=== PATIENT | female | born 1955 | race Caucasian/White ===

== ENCOUNTER → 2017-07-25 | Outpatient (CLI) | payer BC ==
[2016-07-15 12:05] VITALS: BP 158/78
[~2017-07-25] MED LIST: ASPI325T11 PO; ATOR20TA58 PO; BENZ0.5T PO; CLON0.5T3 PO; CLOT15CR5 TOP; FLUO20CA8 PO; LEVO100T5 PO; LISI-338 PO; LOPE1LIQ7 PO; MIDO5TAB PO; RISP2TAB3 PO; TRAZ50TA15 PO
--- NOTE | 2017-07-25 13:37 | RAD ---
DATE: July 25, 2017 EXAM: DIGITAL SCREEN BILAT W/CAD HISTORY: Routine screening. COMPARISON: April 06, 2015. January 27, 2014. January 19, 2013. TECHNIQUE: 2D digital CC and MLO views of each breast were obtained. There is a repeat right CC and right MLO view. This study was interpreted with the benefit of Computerized Aided Detection (CAD). FINDINGS: The breast parenchyma demonstrates scattered fibroglandular densities, category B. Areas of nodularity within both breasts are stable. No new or enlarging mass is identified. There are benign calcifications. There are no suspicious groupings of microcalcifications. IMPRESSION: Stable mammogram with benign findings. BI-RADS CATEGORY: 2 BENIGN FINDING RECOMMENDED FOLLOW-UP: 12M 12 MONTH FOLLOW-UP PQRS compliance statement: Patient information was entered into a reminder system with a target due date for the next mammogram. Mammography is a sensitive method for finding small breast cancers, but it does not detect them all and is not a substitute for careful clinical examination. A negative mammogram does not negate a clinically suspicious finding and should not result in delay in biopsying a clinically suspicious abnormality. "Our facility is accredited by the [employer] Mammography [employer]."
== END | disposition home or self-care (01) ==
LOC: MAMMO 12:57
PROVIDERS: ATTEND Family Medicine
DX: Z12.31 Encounter for screening mammogram for malignant neoplasm of breast (principal)
CPT/HCPCS: G0202; 77067